=== PATIENT | male | born 1960 | race Caucasian/White ===

== ENCOUNTER → 2017-08-05 10:37 | Outpatient (CLI) | payer MEDICAID, SELFPAY ==
--- NOTE | 2017-08-05 10:44 | XR_ITS ---
XR chest 2V HISTORY: ITS.REASON: FALL, LT RIB PAIN, COPD,COUGH ORDERING PHYSICIAN: Maximino Peters PATIENT AGE: 57 years COMPARISON: 07/07/2016 FINDINGS: Normal heart size. No evidence of CHF.. Postsurgical changes on the right with right apical pleural thickening and fibrotic changes of the right lung as before.. No lobar consolidation or collapse. The pulmonary hyperinflation consistent with COPD. There is a minimally displaced fracture involving the posterior lateral aspect of the left eighth rib. The fracture margin is somewhat obscured suggesting healing. IMPRESSION: 1. Healing left eighth rib fracture not readily apparent on 07/07/2016. 2. Postsurgical changes on the right with COPD and pulmonary fibrotic changes as well as right apical pleural thickening as before
== END ==
PROVIDERS: PCP Internal Medicine; Visit Provider Internal Medicine
DX: J44.9 Chronic obstructive pulmonary disease, unspecified (principal); R07.81 Pleurodynia
CPT/HCPCS: 71046

== ENCOUNTER → 2017-08-23 11:02 | Outpatient (CLI) | payer MEDICAID, SELFPAY ==
--- NOTE | 2017-08-23 11:07 | XR_ITS ---
XR hip LT 2-3V w/pelvis HISTORY: ITS.REASON: LT HIP PAIN, DJD LT HIP ORDERING PHYSICIAN: Maximino Peters PATIENT AGE: 57 years COMPARISON: 04/11/2017 FINDINGS: There are mild osteoarthritic changes of the left hip with some decrease in joint space medially and minimal osteophyte formation. No fracture or dislocation. No lytic or blastic change. Total right hip prosthesis is present. IMPRESSION: Mild osteoarthritis of left hip
== END ==
PROVIDERS: PCP Internal Medicine; Visit Provider Internal Medicine
DX: M25.552 Pain in left hip (principal); M16.12 Unilateral primary osteoarthritis, left hip
CPT/HCPCS: 73502

== ENCOUNTER → 2017-09-20 08:06 | Outpatient (CLI) | payer MEDICAID, SELFPAY ==
--- NOTE | 2017-09-20 | CT_ITS ---
CT chest wo con HISTORY: Shortness of breath, coughing up blood, left rib pain following injury, prior thoracic surgery ITS.REASON: SOB ORDERING PHYSICIAN: Maximino Peters PATIENT AGE: 57 years TECHNIQUE: Axial images obtained. Sagittal and coronal reformatted images are also generated and reviewed. CONTRAST: None COMPARISON: None FINDINGS: No obvious mediastinal mass. There are coronary artery calcification with normal heart size. Fibrotic changes are present involving the right apex with some cavitation which is shown some improvement when compared to 10/30/2014 with improvement in the consolidation. Surgical clips are present in the right lung with hilar retraction superiorly on the right. There is some increased soft tissue density in the right hilum some of which may be due to unopacified vessels. Centrilobular emphysematous change is noted with bilateral bulla more extensive on the right. There is a noncalcified 7 mm right upper lung zone nodule which is unchanged. A 9 mm subpleural density is present in the right lower lung zone. This is unchanged as well. There is a 5 mm noncalcified nodule in the left upper lobe not readily apparent on the previous exam.. No effusions or new areas of infiltrate. No evidence of pneumothorax. Nondisplaced fractures involving the left seventh, eighth, and ninth ribs posterolaterally. These fractures have developed since 10/30/2014. There is also nondisplaced fracture of the left sixth rib. The seventh and 8 rib fractures appear chronic. The ninth rib fracture appears more acute without callus formation. Upper abdominal images show a 1 cm partially calcified nodule projecting off the posterior medial aspect of the right hepatic lobe unchanged IMPRESSION: 1. Postinflammatory fibrotic changes in the right apex with some cavitation along with centrilobular emphysema and scattered bulla. The consolidation in right upper lung zone has improved compared to the previous study. Postsurgical changes on the right 2. Stable right-sided pulmonary nodules with a new 5 mm left upper lobe nodule which is noncalcified. Recommend 6 month follow-up. 3. Old left-sided seventh and eighth rib fractures with more acute appearing left ninth rib fracture nondisplaced and possible left sixth rib fracture.
== END ==
PROVIDERS: Family Provider Internal Medicine; PCP Internal Medicine; Visit Provider Internal Medicine
DX: J44.9 Chronic obstructive pulmonary disease, unspecified (principal); J20.9 Acute bronchitis, unspecified; R04.2 Hemoptysis; F17.209 Nicotine dependence, unspecified, with unspecified nicotine-induced disorders; S22.32XA Fracture of one rib, left side, initial encounter for closed fracture
CPT/HCPCS: 71250

== ENCOUNTER → 2017-10-31 08:39 | Outpatient (CLI) | payer MEDICAID, SELFPAY ==
--- NOTE | 2017-10-31 08:43 | CA_ITS ---
PROCEDURE: 2-D M-mode and color Doppler study INDICATIONS FOR THE TEST: Chest pain COPDX Heart Murmur Tobacco SmokingX Palpitations Fatigue Syncope EdemaX Hypertension Diabetes Mellitus Rheumatic Fever SOB DOEXObesityXHyperlipidemia Family History HD Additional History PUL FIBROSIS,R LUNGECTOMY TDS PT RESTLESS DURING EXAM PATIENT INFORMATION HEIGHT: 70 WEIGHT:182 GENDER: Male B/P:127/80 2-D/M-MODE INTERPRETATION: 2-D MEASUREMENTS OBSERVED VALUES IN CMS Right Ventricular Dimension (RVDd) 1.8 Interventricular Septum (Thickness)(IVsd) 1.1 Left Ventricular Internal Dimensions(LVIDd) 4.8 Left Ventricular Posterior Wall (Thickness)(LVPWd) 1.0 Aortic Root 3.8 Aortic Cusp Separation 2.7 Left Atrial Dimensions (LAD) 2.3 2D 1. Left atrium is normal size, left ventricle is normal size, there is no concentric left ventricular hypertrophy, visually estimated ejection fraction 55% with no obvious regional wall motion abnormality. 2. The right atrium and right ventricle are mildly enlarged with normal contractility. 3. The aortic valve is minimally thickened and fibrosed. 4. The mitral and tricuspid valve leaflets are minimally thickened. 5. The pulmonic valve is poorly visualized. 6. No significant pericardial effusion noted. DOPPLER INTERROGATION: Doppler interrogation of the aortic, mitral and tricuspid valvular presence of mild mitral and tricuspid regurgitation, tricuspid and jet velocity insufficient for calculation of the right ventricular systolic pressure, grade 1 diastolic dysfunction seen without tissue Doppler evidence of raised left atrial pressure. CONCLUSION: 1. Normal left ventricular size, preserved left ventricular systolic function, visually estimated ejection fraction 55% with no obvious regional wall motion abnormality, grade 1 diastolic dysfunction seen without tissue Doppler evidence of raised left atrial pressure. 2. Mild mitral and tricuspid regurgitation 3. Mildly enlarged right ventricle with normal contractility. 4. No significant pericardial effusion noted.
== END ==
PROVIDERS: Family Provider Internal Medicine; PCP Internal Medicine; Visit Provider Internal Medicine
DX: R06.02 Shortness of breath (principal); R60.9 Edema, unspecified
CPT/HCPCS: 93306

== ENCOUNTER → 2018-03-29 13:32 | Outpatient (CLI) | payer MEDICAID, SELFPAY | PROVIDERS: PCP Internal Medicine; Visit Provider Internal Medicine | DX: M47.817 Spondylosis without myelopathy or radiculopathy, lumbosacral region (principal) ==

== ENCOUNTER → 2018-03-31 16:23 | Outpatient (CLI) | payer MEDICAID, SELFPAY ==
--- NOTE | 2018-03-31 16:25 | MR_ITS ---
MR lumbar spine wo con, MR 3-d myelogram/MRCP HISTORY: LBP, Bilateral leg pain, Numbness and tingling. ITS.REASON: SPONDYLOSIS WITHOUT MYELOPATHY ORDERING PHYSICIAN: Maximino Peters PATIENT AGE: 57 years Comparison: X-RAY 07-11-17 TECHNIQUE: Standard multiplanar multiecho sequences are performed without contrast. 3-D MIP and myelographic images are also rendered and reviewed FINDINGS: The spinal cord ends at the T12-L1 level. T12-L1: Unremarkable. L1-L2: Unremarkable. L2-L3: Minimal bulging disc with mild facet and ligamentum flavum hypertrophy with mild bilateral foraminal narrowing slightly greater on the right. L3-L4: Minimal bulging disc along with mild facet and ligamentum flavum hypertrophy with mild bilateral foraminal narrowing slightly greater on the right. Minimal anterolisthesis of L3 on L4 of 2 mm. L4-L5: 4 mm anterolisthesis of L4 with bulging disc and small broad-based central disc protrusion slightly eccentric toward the left abutting the anteromedial aspect of the left S1 nerve root. There is moderate bilateral foraminal narrowing. There is narrowing of the canal at 10 mm at this level. There is moderate to severe left lateral recess narrowing. L5-S1: Degenerative disc disease with bulging disc. There is mild retrolisthesis of L5 of 3 mm with an annular fissure within the posterior aspect of the disc. There is mild facet ligamentum hypertrophy with moderate bilateral foraminal narrowing. No extruded herniated disc. It appears that urinary bladder is distended. IMPRESSION: 1. Mild lumbar spondylosis as described above with bulging disc along with facet and ligamentum hypertrophy and foraminal lateral recess narrowing. Please see above for detailed description at each level. 2. L4-L5: 4 mm anterolisthesis of L4 with bulging disc and small broad-based central disc protrusion slightly eccentric toward the left abutting the anteromedial aspect of the left S1 nerve root. There is moderate bilateral foraminal narrowing. There is narrowing of the canal at 10 mm at this level. There is moderate to severe left lateral recess narrowing. 3. L5-S1: Degenerative disc disease with bulging disc. There is mild retrolisthesis of L5 of 3 mm with an annular fissure within the posterior aspect of the disc. There is mild facet ligamentum hypertrophy with moderate bilateral foraminal narrowing.
== END ==
PROVIDERS: Family Provider Internal Medicine; PCP Internal Medicine; Visit Provider Internal Medicine
DX: M47.817 Spondylosis without myelopathy or radiculopathy, lumbosacral region (principal)
CPT/HCPCS: 72148; 76376

== ENCOUNTER → 2018-05-15 10:17 | Outpatient (POV) | payer MEDICAID, SELFPAY ==
[2018-05-15 10:32] VITALS: BP 123/83; PULSE 112; RESP 22; O2SAT 93
--- NOTE | 2018-05-15 11:07 | HMH.PMCON ---
Assessment and Plan (1) Degenerative disc disease Current visit: Yes Status: Chronic Qualifiers: Spinal region: lumbar Qualified Code(s): M51.36 - Other intervertebral disc degeneration, lumbar region Category: Medical (2) Bulging disc Current visit: Yes Status: Acute Category: Medical - Assessment and plan all Dx Assessment and Plan for all problems:: We will schedule the patient for an L4-L5 lumbar epidural steroid injection. Patient states he is not on any antibiotics and does not have any open wounds. Patient is not diabetic. Patient's not on any anticoagulation therapy. I will follow-up with the patient after his injection. This note was dictated using voice recognition software and may contain errors or omissions HPI - Data of Consult Consult date: 05/15/18 Requesting Physician: Charlotte Samson APRN Primary Care Provider: Maximino Peters Family Provider: Maximino Peters - Consult Narrative Reason for consult: Back pain History of present illness: Mr. Mandel is a 58 year old male who presents today for consultation in regards to his low back pain. Patient states that he has had constant pain over the last couple years. Patient had his right hip replaced which he states did not help. Patient has had multiple injections in both hips with no relief. Patient states that he is tried and failed physical therapy. Patient is currently on oxycodone from his primary care physician. Patient states all activity increases his pain while nothing decreases it. He denies numbness and tingling in any extremity however he does state he has shooting pain down his right leg at times. Patient is not on any anticoagulation therapy. Patient rates his pain a 7 out of 10 today. Patient states I am here because Dr. Peters said I need to get a back injection . CC: Charlotte Samson APRN [facility] History I have reviewed the patient's past medical history: Yes Medical History: Reports:: Chronic Obstructive Pulmonary Disease (COPD) Denies:: Diabetes Mellitus Type 1 Other Medical History: Reports: Arthritis Laterality Cases: Right: Total Hip Replacement, Bilateral: Other Other Surgeries: Yes: Appendectomy - *Social History Smoking Status: Current every day smoker Tobacco Type: cigarettes # Packs/Day (cigarettes): 2 Alcohol Intake: never Alcohol Intake Frequency:: 3 or more drinks per day Occupational Status: retired Housing: house Household Members: other - Psychiatric History Expresses thoughts of harming self/others: None Suicide Plan Description: No Plan *Family Hx:: Unable to obtain Review of Systems - Review of Systems ROS General: no recent weight change, no fever, no sleep disturbances Respiratory: no cough, no shortness of air, no recurring pulmonary infections Cardiovascular/Peripheral Vascular: No chest pain, No palpitations, no edema, no shortness of breath. Gastrointestinal: no incontinence, normal bowel movements reported Genitourinary: no incontinence Musculoskeletal: Back pain, leg pain Psychiatric: normal mood/ affect Neurological: [denies weakness in extremities], [denies balance issues] Meds Home Medications Medication Instructions Recorded Confirmed Type etodolac 400 mg tablet 400 mg PO Q8H tab 09/05/17 History gabapentin 300 mg capsule 300 mg PO QHS cap 09/05/17 History hydrocodone 5 mg-acetaminophen 325 1 tab PO Q4-6H PRN 09/05/17 History mg tablet Allergies Allergy/AdvReac Type Severity Reaction Status Date / Time aspirin [ASPIRIN] Allergy Mild Vomiting Verified 09/05/17 15:11 Objective Vital signs: Pulse Resp BP Pulse Ox 112 H 22 123/83 93 L 05/15/18 10:32 05/15/18 10:32 05/15/18 10:32 05/15/18 10:32 Narrative: Physical Exam General: Alert and oriented x3, no acute distress, pleasant and cooperative, [on room air] Lungs: Resps E/U, Symmetrical chest expansion, Eyes: PERRL Musculoskeletal: Flex
--- NOTE | 2018-05-15 11:10 | P.CONS_ITS ---
Assessment and Plan (1) Degenerative disc disease Current visit: Yes Status: Chronic Qualifiers: Spinal region: lumbar Qualified Code(s): M51.36 - Other intervertebral disc degeneration, lumbar region Category: Medical (2) Bulging disc Current visit: Yes Status: Acute Category: Medical - Assessment and plan all Dx Assessment and Plan for all problems:: We will schedule the patient for an L4-L5 lumbar epidural steroid injection. Patient states he is not on any antibiotics and does not have any open wounds. Patient is not diabetic. Patient's not on any anticoagulation therapy. I will follow-up with the patient after his injection. This note was dictated using voice recognition software and may contain errors or omissions HPI - Data of Consult Consult date: 05/15/18 Requesting Physician: Charlotte Samson APRN Primary Care Provider: Maximino Peters Family Provider: Maximino Peters - Consult Narrative Reason for consult: Back pain History of present illness: Mr. Mandel is a 58 year old male who presents today for consultation in regards to his low back pain. Patient states that he has had constant pain over the last couple years. Patient had his right hip replaced which he states did not help. Patient has had multiple injections in both hips with no relief. Patient states that he is tried and failed physical therapy. Patient is currently on oxycodone from his primary care physician. Patient states all activity increases his pain while nothing decreases it. He denies numbness and tingling in any extremity however he does state he has shooting pain down his right leg at times. Patient is not on any anticoagulation therapy. Patient rates his pain a 7 out of 10 today. Patient states I am here because Dr. Peters said I need to get a back injection . CC: Charlotte Samson APRN [facility] History I have reviewed the patient's past medical history: Yes Medical History: Reports:: Chronic Obstructive Pulmonary Disease (COPD) Denies:: Diabetes Mellitus Type 1 Other Medical History: Reports: Arthritis Laterality Cases: Right: Total Hip Replacement, Bilateral: Other Other Surgeries: Yes: Appendectomy - *Social History Smoking Status: Current every day smoker Tobacco Type: cigarettes # Packs/Day (cigarettes): 2 Alcohol Intake: never Alcohol Intake Frequency:: 3 or more drinks per day Occupational Status: retired Housing: house Household Members: other - Psychiatric History Expresses thoughts of harming self/others: None Suicide Plan Description: No Plan *Family Hx:: Unable to obtain Review of Systems - Review of Systems ROS General: no recent weight change, no fever, no sleep disturbances Respiratory: no cough, no shortness of air, no recurring pulmonary infections Cardiovascular/Peripheral Vascular: No chest pain, No palpitations, no edema, no shortness of breath. Gastrointestinal: no incontinence, normal bowel movements reported Genitourinary: no incontinence Musculoskeletal: Back pain, leg pain Psychiatric: normal mood/ affect Neurological: [denies weakness in extremities], [denies balance issues] Meds Home Medications Medication Instructions Recorded Confirmed Type etodolac 400 mg tablet 400 mg PO Q8H tab 09/05/17 History gabapentin 300 mg capsule 300 mg PO QHS cap 09/05/17 History hydrocodone 5 mg-acetaminophen 325 1 tab PO Q4-6H PRN 09/05/17 History mg tablet
== END ==
PROVIDERS: Family Provider Internal Medicine; PCP Internal Medicine; Visit Provider Clinical Nurse Specialist Family Health
DX: M51.36 Other intervertebral disc degeneration, lumbar region (principal)
CPT/HCPCS: 99202

== ENCOUNTER → 2018-07-10 13:42 | Outpatient (POV) | payer MEDICAID, SELFPAY ==
[2018-07-10 14:09] VITALS: BP 124/73; PULSE 113; O2SAT 98; BMI 26.5
--- NOTE | 2018-07-11 08:16 | HMH.PAINSOAP ---
[facility] Pain Management SOAP Note Subjective:: Patient is a 58-year-old white male who presents today for follow-up after lumbar epidural steroid injection. Patient states he got no relief from the injection. He states most of his pain is in his belt line at this time. Is tender over bilateral sides. He rates his pain a 9 out of 10. Patient is currently on oxycodone and gabapentin from his primary care physician. Is not on any anticoagulation therapy. ROS General: no recent weight change, no fever, no sleep disturbances Respiratory: no cough, no shortness of air, no recurring pulmonary infections Cardiovascular/Peripheral Vascular: No chest pain, No palpitations, no edema, no shortness of breath. Gastrointestinal: no incontinence, normal bowel movements reported Genitourinary: no incontinence Musculoskeletal: Back pain, leg pain, SI joint pain Psychiatric: normal mood/ affect Neurological: [denies weakness in extremities], [denies balance issues] Objective:: Physical Exam General: Alert and oriented x3, no acute distress, pleasant and cooperative, [on room air] Lungs: Resps E/U, Symmetrical chest expansion, Eyes: PERRL Musculoskeletal: Flexion and extension of lumbar spine somewhat guarded secondary to pain, deep tendon reflexes normal, strength in upper and lower extremities [5/5], antalgic gait noted, positive Belle's test bilaterally Neurological: speech clear, director of rehabilitation equal, no gross sensory deficits Assessment:: Degenerative disc disease lumbar spine with lumbar radiculopathy, sacroiliitis Plan:: We will schedule bilateral SI joint injections for the patient. We will see if the ears are beneficial to him. If they are not he may be a candidate for intrathecal therapy. This note was dictated using voice recognition software and may contain errors or omissions
== END ==
PROVIDERS: PCP Internal Medicine; Visit Provider Clinical Nurse Specialist Family Health
DX: M51.16 Intervertebral disc disorders with radiculopathy, lumbar region (principal); M46.1 Sacroiliitis, not elsewhere classified
CPT/HCPCS: 99213

== ENCOUNTER → 2018-08-14 10:50 | Outpatient (POV) | payer MEDICAID, SELFPAY ==
[2018-08-14 11:16] VITALS: BP 100/65; PULSE 95; RESP 18; O2SAT 98; BMI 26.8
--- NOTE | 2018-08-14 12:55 | P.CONS_ITS ---
[facility] Pain Management SOAP Note Subjective:: Is a pleasant 58-year-old white male who presents today for follow-up. Patient is not feeling very well at this time. Patient states he is been quite sick. Patient is here to discuss his bilateral SI joint injections. Patient has positive Tono's test, SI compression test and [place]'s test bilaterally. Patient interested in injective therapy. He rates his pain a 9 out of 10 today. Patient is currently on oxycodone and gabapentin from his primary care physician. He is not on any anticoagulation therapy. ROS General: no recent weight change, no fever, no sleep disturbances Respiratory: no cough, no shortness of air, no recurring pulmonary infections Cardiovascular/Peripheral Vascular: No chest pain, No palpitations, no edema, no shortness of breath. Gastrointestinal: no incontinence, normal bowel movements reported Genitourinary: no incontinence Musculoskeletal: Bilateral SI joint pain Psychiatric: normal mood/ affect Neurological: [denies weakness in extremities], [denies balance issues] Objective:: Physical Exam General: Alert and oriented x3, no acute distress, pleasant and cooperative, [on room air] Lungs: Resps E/U, Symmetrical chest expansion, Eyes: PERRL Musculoskeletal: Flexion and extension of bar spine somewhat guarded secondary to pain, deep tendon reflexes normal, strength in upper and lower extremities [5/5], [abnormal gait noted] Neurological: speech clear, electronic test technician equal, no gross sensory deficits Assessment:: Degenerative disc disease lumbar spine with lumbar radiculopathy and sacroiliitis Plan:: We will schedule bilateral SI joint injections for the patient. We will see if this is beneficial for him. He may be a candidate for intrathecal therapy in the future. Dr. Sargent has reviewed this note and agrees with this plan of care. This note was dictated using voice recognition software and may contain errors or omissions
== END ==
PROVIDERS: PCP Internal Medicine; Visit Provider Clinical Nurse Specialist Family Health
DX: M51.16 Intervertebral disc disorders with radiculopathy, lumbar region (principal); M46.1 Sacroiliitis, not elsewhere classified
CPT/HCPCS: 99213

== ENCOUNTER → 2018-09-12 09:21 | Outpatient (POV) | payer MEDICAID, SELFPAY ==
[2018-09-12 09:24] VITALS: BP 129/85; PULSE 115; RESP 18; O2SAT 98; BMI 27.5
--- NOTE | 2018-09-12 10:05 | P.CONS_ITS ---
[facility] Pain Management SOAP Note Subjective:: Patient is a 58-year-old white male who presents today for follow-up after bilateral SI joint injections. He got no relief from his injections. Patient has low back pain and hip pain chronically. Patient has tried and failed conservative measures. He is currently on oxycodone and gabapentin from his primary care physician. He has not seen a surgeon lately. I believe that this is her next step. ROS General: no recent weight change, no fever, no sleep disturbances Respiratory: no cough, no shortness of air, no recurring pulmonary infections Cardiovascular/Peripheral Vascular: No chest pain, No palpitations, no edema, no shortness of breath. Gastrointestinal: no incontinence, normal bowel movements reported Genitourinary: no incontinence Musculoskeletal: Back pain, leg pain, hip pain Psychiatric: normal mood/ affect Neurological: [denies weakness in extremities], [denies balance issues] Objective:: Physical Exam General: Alert and oriented x3, no acute distress, pleasant and cooperative, [on room air] Lungs: Resps E/U, Symmetrical chest expansion, Eyes: PERRL Musculoskeletal: Flexion and extension of lumbar spine somewhat guarded secondary to pain, deep tendon reflexes normal, strength in upper and lower extremities [5/5], [abnormal gait noted] Neurological: speech clear, refinisher equal, no gross sensory deficits Assessment:: Degenerative disc disease with lumbar radiculopathy and sacroiliitis Plan:: We will send the patient to a neurosurgeon for evaluation. I do not believe the patient would be a good intrathecal therapy candidate given his comorbidities and current medication regimen. I will follow-up with the patient after his neurosurgical evaluation. Dr. Sargent has reviewed this note and agrees with this plan of care. This note was dictated using voice recognition software and may contain errors or omissions
== END ==
PROVIDERS: PCP Internal Medicine; Visit Provider Clinical Nurse Specialist Family Health
DX: M51.16 Intervertebral disc disorders with radiculopathy, lumbar region (principal); M46.1 Sacroiliitis, not elsewhere classified
CPT/HCPCS: 99213

== ENCOUNTER → 2018-09-19 07:58 | Outpatient (CLI) | payer MEDICAID, SELFPAY ==
--- NOTE | 2018-09-19 07:59 | US_ITS ---
US abdomen complete HISTORY: ITS.REASON: GALLSTONES,PACREATITIS, ELEVATED PANCREAS ENZYMES ORDERING PHYSICIAN: Maximino Peters PATIENT AGE: 58 years COMPARISON: None FINDINGS: PANCREAS:Unremarkable. No obvious mass or abnormal fluid collection. No ductal dilatation LIVER:Increase echogenicity of liver consistent with hepatic steatosis with poor through transmission of sound. There is appropriate direction of blood flow within the portal vein which does not appear dilated. No obvious liver lesions RIGHT KIDNEY:Unremarkable. Normal size and echogenicity. No hydronephrosis LEFT KIDNEY:Unremarkable. No hydronephrosis. Normal size and echogenicity. GALLBLADDER:Gallbladder is distended with multiple small stones.: Bowel duct is normal at 3 mm. No gallbladder wall thickening or pericholecystic fluid. SPLEEN:Unremarkable. Normal size and echogenicity ASCITES:None demonstrated. IMPRESSION: 1. Mildly distended gallbladder with small stones 2. Fatty liver.
== END ==
PROVIDERS: PCP Internal Medicine; Visit Provider Internal Medicine
DX: K85.10 Biliary acute pancreatitis without necrosis or infection (principal); R74.8 Abnormal levels of other serum enzymes
CPT/HCPCS: 76700

== ENCOUNTER → 2018-10-03 14:50 | Outpatient (CLI) | payer MEDICAID, SELFPAY ==
[2018-10-03 15:11] LABS: Basophils % 0.4 % (0.1-2.0); Eosinophils # 0.1 K/mm3 (0.0-0.4); Eosinophils % 0.5 % (0.1-12.0); Hematocrit 42.6 % (42.0-52.0); Hemoglobin 14.3 g/dL (14.1-18.0); Lymphocytes # 2.1 K/mm3 (0.7-4.5); Lymphocytes % 19.8 % (10-50); Mean Corpuscular HGB Conc 33.5 g/dL (31.8-35.4); Mean Corpuscular Hemoglobin 34.3 pg (27.0-31.2); Mean Corpuscular Volume 102.3 fl (80-94); Mean Platelet Volume 7.3 fl (7.4-10.4); Monocytes # 0.3 K/mm3 (0.1-1.0); Monocytes % 2.9 % (1.7-9.3); Neutrophils % 76.4 % (37.0-80.0); Platelet Count 242 K/mm3 (142-424); Red Blood Count 4.16 M/mm3 (4.60-6.20); Red Cell Distribution Width 14.1 % (11.5-17.5); White Blood Count 10.4 K/mm3 (4.8-10.8)
[2018-10-03 15:17] LABS: INR 0.99 (0.9-1.1); Prothrombin Time 10.2 seconds (9.4-11.8)
[2018-10-03 16:47] LABS: Alanine Aminotransferase 38 U/L (12-78); Albumin Level 2.7 gm/dL (3.4-5.0); Albumin/Globulin Ratio 0.6 (1.1-1.8); Alkaline Phosphatase 133 U/L (46-116); Anion Gap 19.9 mEq/L (5-15); Aspartate Amino Transferase 56 U/L (15-37); Bilirubin,Total 0.3 mg/dL (0.2-1.0); Blood Urea Nitrogen 2 mg/dL (7-18); Calcium 8.2 mg/dL (8.5-10.1); Carbon Dioxide 20 mmol/L (21.0-32.0); Chloride 99 mmol/L (98-107); Creatinine,Serum 0.57 mg/dL (0.70-1.30); Estimated Glomerular Filt Rate 146 ml/min (>60); GFR (African American) 177 ML/MIN (>60); Globulin 4.9 gm/dl (1.3-3.2); Glucose 107 mg/dL (74-106); Potassium 3.9 mmoL/L (3.5-5.1); Sodium 135 mmol/L (136-145); Total Protein,Serum 7.6 gm/dL (6.4-8.2)
== END ==
PROVIDERS: Visit Provider Surgery
DX: K82.9 Disease of gallbladder, unspecified (principal)
CPT/HCPCS: 36415; 80053; 85025; 85610

== ENCOUNTER → 2018-10-17 11:12 | Outpatient (CLI) | payer MEDICAID, SELFPAY ==
[2018-10-17 12:02] LABS: Basophils % 0.4 % (0.1-2.0); Eosinophils % 0.6 % (0.1-12.0); Hematocrit 38.1 % (42.0-52.0); Hemoglobin 12.7 g/dL (14.1-18.0); Lymphocytes # 1.7 K/mm3 (0.7-4.5); Lymphocytes % 26.4 % (10-50); Mean Corpuscular HGB Conc 33.2 g/dL (31.8-35.4); Mean Corpuscular Hemoglobin 34.1 pg (27.0-31.2); Mean Corpuscular Volume 102.7 fl (80-94); Mean Platelet Volume 7.3 fl (7.4-10.4); Monocytes # 0.4 K/mm3 (0.1-1.0); Monocytes % 5.9 % (1.7-9.3); Neutrophils # 4.3 K/mm3 (1.8-7.8); Neutrophils % 66.7 % (37.0-80.0); Platelet Count 164 K/mm3 (142-424); Red Blood Count 3.71 M/mm3 (4.60-6.20); White Blood Count 6.4 K/mm3 (4.8-10.8)
[2018-10-17 12:54] LABS: Alanine Aminotransferase 36 U/L (12-78); Albumin Level 2.9 gm/dL (3.4-5.0); Albumin/Globulin Ratio 0.7 (1.1-1.8); Alkaline Phosphatase 145 U/L (46-116); Anion Gap 18.8 mEq/L (5-15); Aspartate Amino Transferase 83 U/L (15-37); Bilirubin,Total 0.6 mg/dL (0.2-1.0); Blood Urea Nitrogen 5 mg/dL (7-18); Calcium 8.2 mg/dL (8.5-10.1); Carbon Dioxide 23 mmol/L (21.0-32.0); Chloride 95 mmol/L (98-107); Creatinine,Serum 0.58 mg/dL (0.70-1.30); Estimated Glomerular Filt Rate 143 ml/min (>60); GFR (African American) 174 ML/MIN (>60); Globulin 4.2 gm/dl (1.3-3.2); Glucose 111 mg/dL (74-106); Potassium 3.8 mmoL/L (3.5-5.1); Sodium 133 mmol/L (136-145); Total Protein,Serum 7.1 gm/dL (6.4-8.2)
== END ==
PROVIDERS: Visit Provider Surgery
DX: R14.0 Abdominal distension (gaseous) (principal); R19.7 Diarrhea, unspecified
CPT/HCPCS: 36415; 80053; 85025

== ENCOUNTER → 2019-02-28 12:04 | Outpatient (CLI) | payer MEDICAID, SELFPAY ==
[2019-02-28 12:25] LABS: INR 1.03 (0.9-1.1); Prothrombin Time 10.7 seconds (9.4-11.8)
[2019-02-28 12:56] LABS: Basophils # 0.1 K/mm3 (0-0.2); Basophils % 0.8 % (0.1-2.0); Eosinophils # 0.1 K/mm3 (0.0-0.4); Eosinophils % 0.7 % (0.1-12.0); Hematocrit 40.2 % (42.0-52.0); Hemoglobin 13.3 g/dL (14.1-18.0); Lymphocytes # 3.3 K/mm3 (0.7-4.5); Lymphocytes % 37.9 % (10-50); Mean Corpuscular HGB Conc 33.2 g/dL (31.8-35.4); Mean Corpuscular Hemoglobin 33.4 pg (27.0-31.2); Mean Corpuscular Volume 100.7 fl (80-94); Mean Platelet Volume 6.8 fl (7.4-10.4); Monocytes # 0.8 K/mm3 (0.1-1.0); Monocytes % 8.9 % (1.7-9.3); Neutrophils # 4.5 K/mm3 (1.8-7.8); Neutrophils % 51.6 % (37.0-80.0); Platelet Count 306 K/mm3 (142-424); Red Blood Count 3.99 M/mm3 (4.60-6.20); White Blood Count 8.7 K/mm3 (4.8-10.8)
[2019-02-28 14:35] LABS: Alanine Aminotransferase 13 U/L (12-78); Albumin Level 2.2 gm/dL (3.4-5.0); Albumin/Globulin Ratio 0.4 (1.1-1.8); Alkaline Phosphatase 113 U/L (46-116); Anion Gap 13.5 mEq/L (5-15); Aspartate Amino Transferase 34 U/L (15-37); Bilirubin,Total 0.5 mg/dL (0.2-1.0); Blood Urea Nitrogen 4 mg/dL (7-18); Calcium 8.2 mg/dL (8.5-10.1); Carbon Dioxide 23 mmol/L (21.0-32.0); Chloride 96 mmol/L (98-107); Creatinine,Serum 0.63 mg/dL (0.70-1.30); Estimated Glomerular Filt Rate 130 ml/min (>60); GFR (African American) 158 ML/MIN (>60); Globulin 5.8 gm/dl (1.3-3.2); Glucose 129 mg/dL (74-106); Potassium 4.5 mmoL/L (3.5-5.1); Sodium 128 mmol/L (136-145)
== END ==
PROVIDERS: Visit Provider Nurse Practitioner
DX: R10.10 Upper abdominal pain, unspecified (principal); R18.8 Other ascites
CPT/HCPCS: 36415; 80053; 85025; 85610

== ENCOUNTER 2019-03-25 11:34 | Inpatient (IN) ==
--- NOTE | 2019-03-25 12:01 | Emergency Department Note ---
ED Disposition Clinical Impression: Alcoholism, Hemoptysis CAP (community acquired pneumonia) Qualifiers: Laterality: right Lung location: upper lobe of lung Qualified Code(s): J18.1 - Lobar pneumonia, unspecified organism Disposition: Admitted as Observation Condition on Discharge: Fair Referrals: Provider,Referral, [Primary Care Provider] - - Critical Care Critical Care Time: No Attestation: On , the high probability of a clinically significant, sudden or life threatening deterioration of the following system(s) required my full and direct attention, intervention and personal management. The time I documented below is in addition to time spent performing reported procedures but includes the following listed in this critical care notation. Medical Decision Making - Rafael Inquiry Pt receiving controlled substance: Yes Rafael was queried for this patient: Yes Reference #:: [id number] Risks and benefits of using a controlled substance: were not discussed with pt by me Comment: 30 rxs. last opiate rx 120 oxycodone 15mg 03/09. gabapentin 03/19 Vital Signs: 03/25/19 11:42 03/25/19 12:28 03/25/19 12:56 Temperature 97.6 F Temperature Source Oral Pulse Rate [Right Radial] 88 85 87 Respiratory Rate 20 Blood Pressure [Right Arm] 122/72 106/72 L 107/74 L Blood Pressure Mean [Right Arm] 88 83 85 Blood Pressure Source [Right Arm] Automatic Cuff Automatic Cuff Automatic Cuff Blood Pressure Position [Right Arm] Sitting Sitting Sitting 02 Sat by Pulse Oximetry 98 100 93 L Oxygen Delivery Method Room Air Room Air Room Air 03/25/19 14:00 03/25/19 14:30 03/25/19 15:00 Temperature Temperature Source Pulse Rate [Right Radial] 86 78 92 H Respiratory Rate Blood Pressure [Right Arm] 133/75 119/78 105/68 L Blood Pressure Mean [Right Arm] 94 91 80 Blood Pressure Source [Right Arm] Automatic Cuff Automatic Cuff Automatic Cuff Blood Pressure Position [Right Arm] Sitting Supine Sitting 02 Sat by Pulse Oximetry 98 98 96 Oxygen Delivery Method - Lab Data Lab Results 03/25/19 11:40: WBC 9.6, RBC 4.02 L, Hgb 13.5 L, Hct 40.8 L, MCV 101.3 H, MCH 33.6 H, MCHC 33.1, RDW 15.0, Plt Count 305, MPV 6.9 L, Neut % (Auto) 73.8, Lymph % (Auto) 18.5, [place] % (Auto) 6.7, Eos % (Auto) 0.5, Baso % (Auto) 0.5, Neut # (Auto) 7.1, Lymph # (Auto) 1.8, [place] # (Auto) 0.6, Eos # (Auto) 0.0, Baso # (Auto) 0.1 03/25/19 11:40: Sodium 126 L, Potassium 3.8, Chloride 90 L, Carbon Dioxide 26, Anion Gap 13.8, BUN 6 L, Creatinine 0.92, Estimated Creat Clear 111, Estimated GFR 84, Est GFR ( Amer) 102, Glucose 136 H, Calcium 9.0, Total Bilirubin 0.7, Direct Bilirubin 0.3 H, Indirect Bilirubin 0.4, AST 24, ALT 13, Alkaline Phosphatase 158 H, Troponin I < 0.02, Total Protein 8.9 H, Albumin 2.4 L, Globulin 6.5 H, Albumin/Globulin Ratio 0.4 L 03/25/19 11:40: PT 11.5, INR 1.11 H 03/25/19 13:25: Lactate 3.5 H Result diagrams: 03/25/19 11:40 03/25/19 11:40 Orders (Tests/Meds): ED MEDICATIONS Generic Name Dose Route Start Last Admin Trade Name Freq PRN Reason Stop Dose Admin Ceftriaxone Sodium 1 gm/ 50 mls @ 100 mls/hr 03/25/19 15:15 Sodium Chloride IV 04/08/19 15:14 Q24H ARJUN Protocol Azithromycin 500 mg/ Sodium 250 mls @ 250 mls/hr 03/25/19 15:15 Chloride IV 04/08/19 15:14 Q24H ARJUN Protocol Clindamycin Phosphate 900 mg/ 106 mls @ 100 mls/hr 03/25/19 15:15 Sodium Chloride IV 04/08/19 15:14 Q8H ARJUN Protocol Sodium Chloride 3 ml 03/25/19 12:12 Sodium Chloride 3% 15ml Neb IH 04/24/19 12:11 ONCE PRN INDUCE SPUTUM COLLECTION Discontinued Medications Generic Name Dose Route Start Last Admin Trade Name Freq PRN Reason Stop Dose Admin Ioversol 75 ml 03/25/19 14:26 03/25/19 14:27 Rad-Optiray 350 100ml Vial IV 03/25/19 14:27 75 ml ONCE ONE Administration Protocol Sodium Chloride 50 ml 03/25/19 14:26 03/25/19 14:27 Rad-Ns 50ml Vial IV 03/25/19 14:27 50 ml ONCE ONE Administration ORDERS Category Date Time Status Ethanol [Ethyl Alcohol] Stat Lab 03/25/19 15:16 Ordered Acid Fast Smear+Culture W/Rflx Routine Micro 03/25/19 12:20 Received Blood Culture Stat Micro 03/25/19 13:30 Received Sputum Culture & Gram Stain Stat Micro 03/25/19 12:20 Results - Radiology Data #1 Image(s): Chest Image Reviewed: Yes I reviewed the patient's radiology image, Yes I have reviewed radiologist's interpretation FINDINGS: There is volume loss right hemithorax with prominent right apical pleural and parenchymal scarring and retraction in the right hilum upward. There surgical clips projecting over the right hilum. Fibrotic stranding and/or scarring extends downward into the right middle lower lung field. The left lung hsieh well expanded and clear. Cardiac size is normal and vascularity is otherwise normal and there is no pleural fluid. There are prominent degenerative changes in both shoulders. IMPRESSION: Postsurgical changes right hemithorax, no acute chest pathology Dictated by: Dr. Nehemias Hi MD 03/25/2019 13:19 - CT Data CT Scan: Chest (CTA) Time Received: 15:[address] Reviewed: Yes: I discussed the CT results w/the radiologist Findings Narrative: Postsurgical changes in right lung with probable superimposed acute infiltrate right upper lobe. - Physician Consults Physician Consulted: Jermaine Quintana Time: 15:23 Reason -: Admission Comment/Response: Agrees to admit the patient to the hospital. We discussed the patient's clinical information, including history, exam, laboratory and radiology results and ED course. Per hospital procedure, I will write temporary bridge inpatient orders on the patient. Specific orders requested by the admitting physician: Continue Rocephin, Zithromax, clindamycin. Alcohol withdrawal protocol. General Adult HPI - General Chief complaint: Chest Pain Stated complaint: chest pain, fall, weakness Time Seen by Provider: 03/25/19 12:00 Mode of Arrival: Wheelchair Limitations: No Limitations Description of Symptoms (Recalled from ER Triage Doc. by RN): Pt reports chest heaviness for approx 2 weeks, reports coughing up blood, generalized weakness and falls. Pt has scattered abrasions noted to BUE and BLE. Pt also reports hx of "liver problems". - History of Present Illness HPI narrative: States constant heaviness across his chest for 2 weeks. Says he is coughing up lots of blood, mouthfuls. Also coughing up phlegm. Does not think he has had a fever. Feels generally weak. He is a smoker. Also states he has a history of liver disease, possibly due to alcohol. He is still a drinker. Last drank a couple of sips of beer yesterday. Called Dr. Peters, his PCP, a few days ago and was started on Keflex. He says he called him because he had "pus coming out of my sores". He points to a scab on his left wrist. 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 Had his gallbladder taken out a few months ago. He thinks it was done at this hospital. PCP is Dr. Peters. - Related Data Home Medications Medication Instructions Recorded Confirmed etodolac 400 mg tablet 400 mg PO Q8H tab 09/05/17 11/15/18 gabapentin 300 mg capsule 300 mg PO QHS cap 09/05/17 11/15/18 famotidine 20 mg tablet 20 mg PO BID 10/04/18 11/15/18 furosemide 40 mg tablet 40 mg PO DAILY 10/04/18 03/25/19 hydrocortisone 2.5 % topical cream 1 applic [place] QD-BID PRN 10/04/18 11/15/18 with perineal applicator ondansetron HCl 4 mg tablet 4 mg PO QID PRN 10/04/18 11/15/18 oxycodone 15 mg tablet 15 mg PO Q4-6H PRN 10/04/18 11/15/18 spironolactone 50 mg tablet 50 mg PO BID 10/04/18 03/25/19 Pantoprazole Sodium [Protonix 40mg 40 mg PO BID 03/25/19 03/25/19 tablet] Potassium Chloride [Klor-con 20 20 meq PO DAILY 03/25/19 03/25/19 mEq tablet] Tamsulosin HCl 0.4 mg PO DAILY 03/25/19 03/25/19 cephALEXin [cephALEXin 500mg 500 mg PO BID 03/25/19 03/25/19 capsule*] Allergies Allergy/AdvReac Type Severity Reaction Status Date / Time aspirin [ASPIRIN] Allergy Mild Vomiting Verified 11/15/18 10:53 [facility] History - Hepatitis A Screen Drug use history?: No High risk sexual behaviors?: No History of sexually transmitted infection?: No Currently employed?: No Childcare worker?: No Do you have indoor plumbing?: Yes Do you have electricity?: Yes Attestation statement:: This patient has been screened for Hepatitis A risk factors. I have reviewed the patient's past medical history: Yes Medical History: Reports:: Chronic Obstructive Pulmonary Disease (COPD) Denies:: Cancer, Diabetes Mellitus Type 1, Diabetes Mellitus Type 2, Internal Pacemaker, MRSA, Seizures Other Medical History: Reports: Arthritis, Fibromyalgia. Denies: Blood Transfusion Reaction Comment: Facial sebaceous cyst, Cervical Spondylosis, Lumbosacral Spondylosis, History of neck fractures x2. Laterality Cases: Other Surgeries: Yes: Appendectomy, Cholecystectomy, Colonoscopy, Other (phneumonectomy). No: Pacemaker Amputation: No Fractures: No Comment: Back Surgery, Hip Replacement, Lung Removal, - Social History Smoking Status: Current every day smoker Tobacco Type: cigarettes # Packs/Day (cigarettes): 3 Alcohol Intake: current Alcohol Intake Frequency:: 0-2 drinks per day Substance Use Type: marijuana Occupational Status: unemployed, retired Housing: house Household Members: none Family Hx:: Unable to obtain ROS Obtained: Yes All systems reviewed & no additional complaints - Constitutional Constitutional: Reports fatigue, Denies fever(s), Reports weakness - Cardiovascular Cardiovascular: Reports chest pain - Respiratory Respiratory: Yes cough, Yes excessive phlegm production, Yes coughing up blood - Gastrointestinal Gastrointestingal: Denies: abdominal pain, diarrhea, vomiting - Integumentary/Breasts Skin/Breast: Reports as per HPI Physical Exam - General General appearance: alert, in no apparent distress Comment: Appears chronically ill, generally in poor health. Appears older than stated age. Generally weak. Scattered bruises of various ages. Scattered scabs. Tobacco stained fingers. - Head Head exam: atraumatic, normocephalic - Eye Eye exam: Present: PERRL, EOMI. Absent: scleral icterus - ENT ENT exam: Present: mucous membranes moist - Neck Neck exam: Present: normal inspection, trachea midline - Chest Chest inspection: Present: normal inspection, symmetric chest wall rise, tenderness (Diffusely tender chest) - Respiratory Respiratory exam: Present: normal lung sounds bilaterally. Absent: respiratory distress - Cardiovascular Cardiovascular exam: Present: regular rate, normal rhythm, normal heart sounds - Abdominal Exam Abdominal exam: Present: soft, tenderness, normal bowel sounds Abdominal tenderness: Present: diffuse - Extremities Exam Extremities exam: Present: normal inspection - Neurological Exam Neurological exam: Present: alert, oriented X3 - Psychiatric Psychiatric exam: Present: normal affect, normal mood - Skin Skin exam: Present: warm, dry
[2019-03-25 12:22] LABS: Basophils # 0.1 K/mm3 (0-0.2); Basophils % 0.5 % (0.1-2.0); Eosinophils % 0.5 % (0.1-12.0); Hematocrit 40.8 % (42.0-52.0); Hemoglobin 13.5 g/dL (14.1-18.0); Lymphocytes # 1.8 K/mm3 (0.7-4.5); Lymphocytes % 18.5 % (10-50); Mean Corpuscular HGB Conc 33.1 g/dL (31.8-35.4); Mean Corpuscular Volume 101.3 fl (80-94); Mean Platelet Volume 6.9 fl (7.4-10.4); Monocytes # 0.6 K/mm3 (0.1-1.0); Monocytes % 6.7 % (1.7-9.3); Neutrophils # 7.1 K/mm3 (1.8-7.8); Neutrophils % 73.8 % (37.0-80.0); Platelet Count 305 K/mm3 (142-424); Red Blood Count 4.02 M/mm3 (4.60-6.20); White Blood Count 9.6 K/mm3 (4.8-10.8)
[2019-03-25 12:28] LABS: INR 1.11 (0.9-1.1); Prothrombin Time 11.5 seconds (9.4-11.8)
[2019-03-25 12:36] LABS: Alanine Aminotransferase 13 U/L (12-78); Albumin Level 2.4 gm/dL (3.4-5.0); Albumin/Globulin Ratio 0.4 (1.1-1.8); Alkaline Phosphatase 158 U/L (46-116); Anion Gap 13.8 mEq/L (5-15); Aspartate Amino Transferase 24 U/L (15-37); Bilirubin,Direct 0.3 mg/dL (0.0-0.2); Bilirubin,Indirect 0.4 mg/dL (0.0-0.9); Bilirubin,Total 0.7 mg/dL (0.2-1.0); Blood Urea Nitrogen 6 mg/dL (7-18); Carbon Dioxide 26 mmol/L (21.0-32.0); Chloride 90 mmol/L (98-107); Globulin 6.5 gm/dl (1.3-3.2); Glucose 136 mg/dL (74-106); Sodium 126 mmol/L (136-145); Total Protein,Serum 8.9 gm/dL (6.4-8.2)
[2019-03-25 16:07] LABS: Amphetamine/Metha Screen,Urine Negative ng/mL (<1000); Barbiturates Screen,Urine Negative ng/mL (<200); Benzodiazepines Screen,Urine Negative ng/mL (<200); Cannabinoid Screen,Urine Negative ng/mL (<50); Cocaine Screen,Urine Negative ng/mL (<300); Methadone Screen,Urine Negative ng/mL (<300); Opiate Screen,Urine Negative ng/mL (<300); Phencyclidine Screen,Urine Negative ng/mL (<25)
[2019-03-25 16:44] LABS: Phosphorous 3.4 mg/dL (2.4-4.9)
[2019-03-26 07:32] LABS: Basophils % 0.5 % (0.1-2.0); Eosinophils % 0.5 % (0.1-12.0); Hematocrit 38.8 % (42.0-52.0); Hemoglobin 12.7 g/dL (14.1-18.0); Lymphocytes # 2.4 K/mm3 (0.7-4.5); Mean Corpuscular HGB Conc 32.7 g/dL (31.8-35.4); Mean Corpuscular Volume 102.2 fl (80-94); Mean Platelet Volume 6.9 fl (7.4-10.4); Monocytes # 0.8 K/mm3 (0.1-1.0); Monocytes % 9.1 % (1.7-9.3); Platelet Count 239 K/mm3 (142-424); Red Cell Distribution Width 14.9 % (11.5-17.5); White Blood Count 9.3 K/mm3 (4.8-10.8)
[2019-03-26 08:09] LABS: Anion Gap 16.2 mEq/L (5-15); Calcium 8.3 mg/dL (8.5-10.1)
--- NOTE | 2019-03-26 08:32 | History & Physical Report ---
*Admission Date: 03/25/19 *Chief complaint: Hemoptysis and weakness *History of present illness: 58-year-old male patient of Dr. Peters with history of hypertension presented to the emergency department with at least a one-week complaint of episodes of hemoptysis with chest tightness. This morning patient denies fevers or chills but admits to night sweats. Work-up in the emergency department revealed a right upper lobe pneumonia. Patient was admitted on Rocephin and azithromycin to cover community-acquired pneumonia although because of a history of alcoholism has been placed on clindamycin as well to cover aspiration. Patient was quite weak in the emergency department and required the assistance of others to get out of the bed and ambulate to a bathroom. Due to his level of weakness and debility in addition to the pneumonia he was admitted Patient reports drinking 1-1-1/2 beers per day. Previously he had more significant alcohol use. His last alcoholic beverage was the day prior to admission. On admission patient was placed on alcohol withdrawal protocol using Serax Patient smokes 2 packs of cigarettes per day and has been smoking since the age of 3 Patient lives by himself most of the time. There is another male who will live with him periodically. Review of systems was most significant for patient's complaints of pain across his chest that is worse with coughing. Patient ruled out for NV overnight. The chest discomfort he has been feeling with cough has decreased. Patient also reports burning within his stomach. [facility] History Medical History: Reports:: Chronic Obstructive Pulmonary Disease (COPD), Hypertension Denies:: Cancer, Diabetes Mellitus Type 1, Diabetes Mellitus Type 2, Internal Pacemaker, MRSA, Seizures *Have you ever received a pneumonia vaccine?: Yes *Have you received a flu vaccine this season?: Yes Other Medical History: Reports: Arthritis, Fibromyalgia. Denies: Blood Transfusion Reaction Laterality Cases: Right: Total Hip Replacement, Bilateral: Arthroscopy Knee, Other Other Surgeries: Yes: Appendectomy, Cholecystectomy, Colonoscopy, Other (phneumonectomy). No: Pacemaker Amputation: No Fractures: No - *Social History Educational Level: Attended High School Smoking Status: Current every day smoker Tobacco Type: cigarettes # Packs/Day (cigarettes): 40 Alcohol Intake: current Alcohol Intake Frequency:: 0-2 drinks per day Substance Use Type: marijuana *Occupational Status:: unemployed, retired Housing: house Household Members: none *Travel in the last 8 weeks: None Family Hx:: Unable to obtain Review of Systems - Constitutional Reports body ache(s), Reports excessive sweating, Reports fatigue, Reports malaise, Reports night sweats, Denies chills, Denies fever(s) - *Cardiovascular Reports chest pain, Reports chest pain at rest - *Respiratory Reports change in phlegm color, Reports coughing up blood - *Gastrointestinal Reports abdominal pain - *Genitourinary Denies difficulty urinating - *Musculoskeletal Denies abnormal walking - *Neurologic Reports weakness Meds Home Medications Medication Instructions Recorded Confirmed Type etodolac 400 mg tablet 400 mg PO Q8H tab 09/05/17 03/26/19 History gabapentin 300 mg capsule 600 mg PO QHS cap 09/05/17 03/26/19 History famotidine 20 mg tablet 20 mg PO BID 10/04/18 03/26/19 History furosemide 40 mg tablet 40 mg PO DAILY 10/04/18 03/26/19 History hydrocortisone 2.5 % topical cream 1 applic [place] QD-BID PRN 10/04/18 03/26/19 History with perineal applicator ondansetron HCl 4 mg tablet 4 mg PO QID PRN 10/04/18 03/26/19 History oxycodone 15 mg tablet 15 mg PO Q4-6H PRN 10/04/18 03/26/19 History spironolactone 50 mg tablet 50 mg PO BID 10/04/18 03/26/19 History Pantoprazole Sodium [Protonix 40mg 40 mg PO BID 03/25/19 03/26/19 History tablet] Potassium Chloride [Klor-con 20 20 meq PO DAILY 03/25/19 03/26/19 History mEq tablet] Tamsulosin HCl 0.4 mg PO DAILY 03/25/19 03/26/19 History cephALEXin [cephALEXin 500mg 500 mg PO BID 03/25/19 03/26/19 History capsule*] Gabapentin [Gabapentin 300mg Cap] 300 mg PO DAILY 03/26/19 03/26/19 History Promethazine HCl [Phenergan 25mg 25 mg PO BIDP PRN 03/26/19 03/26/19 History tab] Allergies Allergy/AdvReac Type Severity Reaction Status Date / Time aspirin [ASPIRIN] Allergy Mild Vomiting Verified 11/15/18 10:53 Exam Vital signs and Labs for Last 24 Hours: Temp Pulse Resp BP Pulse Ox 98.4 F 82 19 96/65 L 86 L 03/26/19 04:00 03/26/19 05:46 03/26/19 04:00 03/26/19 04:00 03/26/19 05:46 Laboratory Results - last 24 hr 03/25/19 11:40: WBC 9.6, RBC 4.02 L, Hgb 13.5 L, Hct 40.8 L, MCV 101.3 H, MCH 33.6 H, MCHC 33.1, RDW 15.0, Plt Count 305, MPV 6.9 L, Neut % (Auto) 73.8, Lymph % (Auto) 18.5, [place] % (Auto) 6.7, Eos % (Auto) 0.5, Baso % (Auto) 0.5, Neut # (Auto) 7.1, Lymph # (Auto) 1.8, [place] # (Auto) 0.6, Eos # (Auto) 0.0, Baso # (Auto) 0.1 03/25/19 11:40: Sodium 126 L, Potassium 3.8, Chloride 90 L, Carbon Dioxide 26, Anion Gap 13.8, BUN 6 L, Creatinine 0.92, Estimated Creat Clear 111, Estimated GFR 84, Est GFR ( Amer) 102, Glucose 136 H, Calcium 9.0, Total Bilirubin 0.7, Direct Bilirubin 0.3 H, Indirect Bilirubin 0.4, AST 24, ALT 13, Alkaline Phosphatase 158 H, Troponin I < 0.02, Total Protein 8.9 H, Albumin 2.4 L, Globulin 6.5 H, Albumin/Globulin Ratio 0.4 L 03/25/19 11:40: PT 11.5, INR 1.11 H 03/25/19 11:40: APTT 29.5 03/25/19 11:40: Phosphorus 3.4, Magnesium 2.0 03/25/19 13:25: Lactate 3.5 H 03/25/19 15:40: Urine Opiates Screen Negative, Urine Methadone Screen Negative, Ur Barbituates Screen Negative, Ur Phencyclidine Scrn Negative, Ur Amphetamines Screen Negative, U Benzodiazepines Scrn Negative, Urine Cocaine Screen Negative, U Marijuana (THC) Screen Negative 03/25/19 18:00: Troponin I < 0.02 03/25/19 18:00: Lactate 3.5 H 03/25/19 20:30: Lactate 2.6 H 03/25/19 21:53: Troponin I < 0.02 03/26/19 06:15: WBC 9.3, RBC 3.80 L, Hgb 12.7 L, Hct 38.8 L, MCV 102.2 H, MCH 33.4 H, MCHC 32.7, RDW 14.9, Plt Count 239, MPV 6.9 L, Neut % (Auto) 64.0, Lymph % (Auto) 26.0, [place] % (Auto) 9.1, Eos % (Auto) 0.5, Baso % (Auto) 0.5, Neut # (Auto) 6.0, Lymph # (Auto) 2.4, [place] # (Auto) 0.8, Eos # (Auto) 0.0, Baso # (Auto) 0.0 I & O for Last 24 hours: Intake & Output 03/23/19 03/24/19 03/25/19 03/26/19 11:59 11:59 11:59 11:59 Intake Total 2096 Balance 2096 Weight 200 lb 178 lb 5 oz Microbiology Reports for the Last 24 Hours: Microbiology 03/25/19 12:20 Sputum - Expectorated Sputum Gram Stain - Final Narrative: Adult male who appears older than his stated age. Oropharynx is moist and without lesions. Neck has no lymphadenopathy. Lungs are have faint expiratory wheezes throughout with faint rale in the right upper lobe. Diminished breath sounds in the right lower lobe. Heart has a regular rate and rhythm. Abdomen is soft and nontender. Patient has active range of motion in all extremities. There is no pedal edema. Neurologically he is noted to have a right hand tremor Assessment and Plan (1) CAP (community acquired pneumonia) Current visit: Yes Status: Acute Qualifiers: Laterality: right Lung location: upper lobe of lung Qualified Code(s): J18.1 - Lobar pneumonia, unspecified organism Category: Medical Code(s): J18.9 - Pneumonia, unspecified organism (2) Alcoholism Current visit: Yes Status: Acute Category: Medical Code(s): F10.20 - Alcohol dependence, uncomplicated (3) Hemoptysis Current visit: Yes Status: Acute Category: Medical Code(s): R04.2 - Hemoptysis - Assessment and plan all Dx Assessment and Plan for all problems:: 1. Continue Rocephin and azithromycin as well as clindamycin at this time. Patient is lucid this morning and currently is consuming very little alcohol chance of aspiration is low. Patient be given a regular diet 2. Continue home medications except for his etodolac due to complaint of "burning stomach" 3. Sputum is being tested for acid-fast bacilli and continue TB precautions
--- NOTE | 2019-03-26 10:13 | Pharmacy Consult Notes ---
[facility] Pharmacy VTE Monitoring - Patient Demographics Admission date: 03/25/19 Report Date: 03/26/19 Time: 10:12 Allergies/Adverse Reactions: Patient Allergies aspirin [ASPIRIN] Allergy (Mild, Verified 11/15/18 10:53) Vomiting Height: 1.78 m Weight: 80.881 kg Patient Problems: Current Active Problems Alcoholism (Acute) CAP (community acquired pneumonia) (Acute) Hemoptysis (Acute) - VTE Risk Labs: VTE Related Lab Results Hgb 12.7 g/dL (14.1-18.0) L 03/26/19 06:15 Hct 38.8 % (42.0-52.0) L 03/26/19 06:15 Plt Count 239 K/mm3 (142-424) 03/26/19 06:15 PT 11.5 seconds (9.4-11.8) 03/25/19 11:40 INR 1.11 (0.9-1.1) H 03/25/19 11:40 APTT 29.5 seconds (23.6-34.0) 03/25/19 11:40 BUN 8 mg/dL (7-18) D 03/26/19 06:15 Creatinine 0.86 mg/dL (0.70-1.30) 03/26/19 06:15 Estimated Creat Clear 106 mL/min (50-200) 03/26/19 06:15 Was VTE Risk Assessment Performed: Yes VTE Score: 5 VTE Risk Level: Low Risk - Prophylaxis VTE Prophylaxis Ordered?: Yes Types of VTE Prophylaxis: TEDS Knee High Location of Applied Device: Bilateral Lower Extremeties
--- NOTE | 2019-03-26 16:53 | Electrocardiograph Report ---
APPROVED REPORT Exam: Resting ECG HR:88 bpm ECG Measurements Heart Rate 88 AXES WI 218 P 54 QRSd 84 QRS -58 QT 364 T51 QTc 440 <Conclusion> Sinus rhythm with 1st degree AV block Left axis deviation,LAHB Abnormal ECG Electronically signed by : Maximino Peters, 03/26/2019 16:53:55
[2019-03-27 06:36] LABS: Basophils % 0.3 % (0.1-2.0); Eosinophils # 0.1 K/mm3 (0.0-0.4); Eosinophils % 0.9 % (0.1-12.0); Hematocrit 35.9 % (42.0-52.0); Lymphocytes # 1.5 K/mm3 (0.7-4.5); Lymphocytes % 17.2 % (10-50); Mean Corpuscular HGB Conc 33.5 g/dL (31.8-35.4); Mean Corpuscular Volume 101.2 fl (80-94); Mean Platelet Volume 6.9 fl (7.4-10.4); Monocytes # 0.9 K/mm3 (0.1-1.0); Monocytes % 9.7 % (1.7-9.3); Neutrophils # 6.3 K/mm3 (1.8-7.8); Neutrophils % 71.8 % (37.0-80.0); Platelet Count 179 K/mm3 (142-424); Red Blood Count 3.55 M/mm3 (4.60-6.20); White Blood Count 8.8 K/mm3 (4.8-10.8)
[2019-03-27 06:46] LABS: Anion Gap 12.9 mEq/L (5-15); Calcium 8.2 mg/dL (8.5-10.1)
--- NOTE | 2019-03-27 10:54 | Progress Note ---
Internal Medicine - PN: Subj *Date: 03/27/19 *Time: 08:20 Interval history: Patient with no significant improvement the past 24 hours. Abdomen continues to be distended. No worsening shortness of breath. Tolerating some p.o. intake. Continues to have hyponatremia. Continuing broad-spectrum antibiotics. Remains afebrile overnight. Denies nausea or vomiting, confusion, headache. Does still have chest pain in the left chest wall. Exam Vital signs and Labs for Last 24 Hours: Temp Pulse Resp BP Pulse Ox 99.5 F 89 18 98/69 L 91 L 03/27/19 07:55 03/27/19 09:09 03/27/19 07:55 03/27/19 07:55 03/27/19 07:55 Laboratory Results - last 24 hr 03/27/19 06:00: WBC 8.8, RBC 3.55 L, Hgb 12.0 L, Hct 35.9 L, MCV 101.2 H, MCH 33.9 H, MCHC 33.5, RDW 15.0, Plt Count 179 D, MPV 6.9 L, Neut % (Auto) 71.8, Lymph % (Auto) 17.2, [place] % (Auto) 9.7 H, Eos % (Auto) 0.9, Baso % (Auto) 0.3, Neut # (Auto) 6.3, Lymph # (Auto) 1.5, [place] # (Auto) 0.9, Eos # (Auto) 0.1, Baso # (Auto) 0.0 03/27/19 06:00: Sodium 125 L, Potassium 3.9, Chloride 93 L, Carbon Dioxide 23, Anion Gap 12.9, BUN 6 L, Creatinine 0.72, Estimated Creat Clear 126, Estimated GFR 112, Est GFR ( Amer) 135 D, Glucose 110 H, Calcium 8.2 L I & O for Last 24 hours: Intake & Output 03/24/19 03/25/19 03/26/19 03/27/19 23:59 23:59 23:59 23:59 Intake Total 900 / 900 1789 / 2189 2388 / 2388 Balance 900 / 900 1789 / 2189 2388 / 2388 Weight 80.059 kg 80.881 kg 80.881 kg Microbiology Reports for the Last 24 Hours: Microbiology 03/25/19 12:20 Sputum - Expectorated Sputum Gram Stain - Final 03/25/19 12:20 Sputum - Expectorated Sputum Sputum Culture - Preliminary Narrative: No acute distress, appears older than stated age Oropharynx is moist and without lesions, no scleral icterus Neck has no lymphadenopathy Lungs with fair air movement, faint expiratory wheezes throughout with crackles and squeak in the right upper lobe. Diminished breath sounds in the right lower lobe Chest wall with spider angiomas Heart has a regular rate and rhythm Abdomen is soft, distended, midline abdominal hernia that is not incarcerated, and nontender Patient has active range of motion in all extremities There is no pedal edema Alert and oriented x2. Assessment and Plan (1) CAP (community acquired pneumonia) Current visit: Yes Status: Acute Qualifiers: Laterality: right Lung location: upper lobe of lung Qualified Code(s): J18.1 - Lobar pneumonia, unspecified organism Category: Medical Code(s): J18.9 - Pneumonia, unspecified organism (2) Alcoholism Current visit: Yes Status: Acute Category: Medical Code(s): F10.20 - Alcohol dependence, uncomplicated (3) Hemoptysis Current visit: Yes Status: Acute Category: Medical Code(s): R04.2 - Hemoptysis - Assessment and plan all Dx Assessment and Plan for all problems:: Continuing to rule out tuberculosis at this time reordered sputum culture for this morning with repeat for tomorrow morning. Acid-fast from 2 days ago still remains negative. Continue respiratory precautions. At this time as well I am unsure about patient's cirrhosis history. Concern for cirrhosis as underlying etiology of patient's problems. Does have stigmata on chest with spider angiomas and distended abdomen. Further history elicits the patient has had ascites drained more than once in the past month. Cirrhosis would explain patient's low blood pressures and hyponatremia along with hemoptysis which may be more than just hemoptysis. No further bleeding. BUN within normal range, low suspicion for GI bleed or variceal bleed. Ammonia level pending. May benefit from endoscopy to assess for variceal presence. Continue to require inpatient management
[2019-03-27 12:54] LABS: Albumin/Globulin Ratio 0.3 (1.1-1.8); Anion Gap 18.9 mEq/L (5-15); Bilirubin,Total 0.8 mg/dL (0.2-1.0); Calcium 8.4 mg/dL (8.5-10.1); Globulin 5.8 gm/dl (1.3-3.2); Total Protein,Serum 7.8 gm/dL (6.4-8.2)
[2019-03-28 07:08] LABS: Basophils % 0.4 % (0.1-2.0); Eosinophils # 0.1 K/mm3 (0.0-0.4); Eosinophils % 1.2 % (0.1-12.0); Hematocrit 34.4 % (42.0-52.0); Hemoglobin 11.3 g/dL (14.1-18.0); Lymphocytes # 1.2 K/mm3 (0.7-4.5); Lymphocytes % 13.3 % (10-50); Mean Corpuscular HGB Conc 32.9 g/dL (31.8-35.4); Mean Corpuscular Volume 101.9 fl (80-94); Mean Platelet Volume 7.6 fl (7.4-10.4); Monocytes # 0.9 K/mm3 (0.1-1.0); Monocytes % 9.8 % (1.7-9.3); Neutrophils # 6.9 K/mm3 (1.8-7.8); Neutrophils % 75.4 % (37.0-80.0); Platelet Count 164 K/mm3 (142-424); Red Blood Count 3.38 M/mm3 (4.60-6.20); Red Cell Distribution Width 14.8 % (11.5-17.5); White Blood Count 9.1 K/mm3 (4.8-10.8)
[2019-03-28 07:34] LABS: Albumin Level 1.8 gm/dL (3.4-5.0); Albumin/Globulin Ratio 0.4 (1.1-1.8); Bilirubin,Total 0.8 mg/dL (0.2-1.0); Calcium 8.2 mg/dL (8.5-10.1); Phosphorous 3.9 mg/dL (2.4-4.9); Total Protein,Serum 6.8 gm/dL (6.4-8.2)
--- NOTE | 2019-03-28 08:14 | Progress Note ---
Internal Medicine - PN: Subj *Date: 03/28/19 *Time: 08:11 Interval history: Patient did fairly well overnight and has been eating well. Does not wish to wear his oxygen and oxygen saturations are routinely in the upper 70% range. Nurses apply his oxygen but then he removes it to move about the room and declines to replace the oxygen. Patient is very interested in being discharged home because "I do not want to live out my days in the hospital." He also complains today of scant hemoptysis that is mixed in with mucus that he is coughing up. He denies hemoptysis or dark stools. Reports that he continues to have pain with inspiration across his chest. Denies diaphoresis or anginal type pain. Denies abdominal pain. Exam Vital signs and Labs for Last 24 Hours: Temp Pulse Resp BP Pulse Ox 99.5 F 92 H 19 110/67 89 L 03/28/19 04:00 03/28/19 05:48 03/28/19 04:00 03/28/19 04:00 03/28/19 04:00 Laboratory Results - last 24 hr 03/27/19 11:10: Sodium 127 L, Potassium 3.9, Chloride 94 L, Carbon Dioxide 18 L D, Anion Gap 18.9 H, BUN 6 L, Creatinine 0.72, Estimated Creat Clear 126, Estimated GFR 112, Est GFR ( Amer) 135, Glucose 113 H, Calcium 8.4 L, Total Bilirubin 0.8, AST 32 D, ALT 14, Alkaline Phosphatase 141 H, Total Protein 7.8, Albumin 2.0 L, Globulin 5.8 H, Albumin/Globulin Ratio 0.3 L 03/27/19 11:10: Ammonia 33 03/28/19 06:45: WBC 9.1, RBC 3.38 L, Hgb 11.3 L, Hct 34.4 L, MCV 101.9 H, MCH 33.5 H, MCHC 32.9, RDW 14.8, Plt Count 164, MPV 7.6, Neut % (Auto) 75.4, Lymph % (Auto) 13.3, [place] % (Auto) 9.8 H, Eos % (Auto) 1.2, Baso % (Auto) 0.4, Neut # (Auto) 6.9, Lymph # (Auto) 1.2, [place] # (Auto) 0.9, Eos # (Auto) 0.1, Baso # (Auto) 0.0 03/28/19 06:45: Sodium 127 L, Potassium 5.0 D, Chloride 96 L, Carbon Dioxide 21, Anion Gap 15.0, BUN 5 L, Creatinine 0.63 L, Estimated Creat Clear 153, Estimated GFR 130, Est GFR ( Amer) 158, Glucose 122 H, Calcium 8.2 L, Phosphorus 3.9, Magnesium 1.7 D, Total Bilirubin 0.8, AST 51 H D, ALT 13, Alkaline Phosphatase 138 H, Total Protein 6.8, Albumin 1.8 L, Globulin 5.0 H, Albumin/Globulin Ratio 0.4 L I & O for Last 24 hours: Intake & Output 03/25/19 03/26/19 03/27/19 03/28/19 11:59 11:59 11:59 11:59 Intake Total 2096 / 2096 2980 / 2980 600 / 600 Balance 2096 2980 / 2980 600 / 600 Weight 200 lb 178 lb 5 oz 178 lb 4.993 oz 189 lb 7 oz Microbiology Reports for the Last 24 Hours: Microbiology 03/25/19 12:20 Sputum - Expectorated Sputum Gram Stain - Final 03/25/19 12:20 Sputum - Expectorated Sputum Sputum Culture - Preliminary Pseudomonas aeruginosa Klebsiella pneumoniae 03/25/19 13:30 Blood Blood Culture - Preliminary NO GROWTH AFTER 48 HOURS 03/25/19 13:30 Blood Blood Culture - Preliminary NO GROWTH AFTER 48 HOURS Narrative: Patient is awake, oriented. 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 Patient appears much older than his stated age. Has significant evidence of osteoarthritis of knees, feet and hands. Anterior lung hsieh have rhonchi and crackles in the right middle field. Heart rate regular. Abdomen is soft, no palpable ascites, no stigmata of caput medusa. Trace ankle edema bilaterally but no pitting. Able to move arms and legs well. Cranial nerves intact. Assessment and Plan (1) CAP (community acquired pneumonia) Current visit: Yes Status: Acute Qualifiers: Laterality: right Lung location: upper lobe of lung Qualified Code(s): J18.1 - Lobar pneumonia, unspecified organism Category: Medical Code(s): J18.9 - Pneumonia, unspecified organism (2) Alcoholism Current visit: Yes Status: Acute Category: Medical Code(s): F10.20 - Alcohol dependence, uncomplicated (3) Hemoptysis Current visit: Yes Status: Acute Category: Medical Code(s): R04.2 - Hemoptysis - Assessment and plan all Dx Assessment and Plan for all problems:: Sputum cultures growing Pseudomonas and Klebsiella. Change antibiotic therapy to ceftriaxone and tobramycin to cover these pathogens-formal sensitivities pending. Patient's hemoptysis seems to be from his significant pneumonia burden, we are awaiting his third AFB sample to be able to remove him from isolation. Check chest x-ray today because of his continuing chest pain and hemoptysis. Check labs tomorrow. Patient will need work-up for probable liver cirrhosis as an outpatient. He will need EGD and ultrasound. Hold on EGD at this point given his significant pneumonia issues.
--- NOTE | 2019-03-28 08:26 | Pharmacy Consult Notes ---
- Pharmacy Consult Date: 03/28/19 Time: 08:24 Referring provider: DR. CORDOVA Reason for Consult:: TOBRAMYCIN DOSING Allergies and ADEs:: Allergies Allergy/AdvReac Type Severity Reaction Status Date / Time aspirin [ASPIRIN] Allergy Mild Vomiting Verified 11/15/18 10:53 Home Medications:: Home Medications Medication Instructions Recorded Confirmed Type etodolac 400 mg tablet 400 mg PO Q8H tab 09/05/17 03/26/19 History gabapentin 300 mg capsule 600 mg PO HS cap 09/05/17 03/26/19 History famotidine 20 mg tablet 20 mg PO BID 10/04/18 03/26/19 History furosemide 40 mg tablet 40 mg PO DAILY 10/04/18 03/26/19 History hydrocortisone 2.5 % topical cream 1 applic MA QD-BID PRN 10/04/18 03/26/19 History with perineal applicator ondansetron HCl 4 mg tablet 4 mg PO QID PRN 10/04/18 03/26/19 History oxycodone 15 mg tablet 15 mg PO Q4-6H PRN 10/04/18 03/26/19 History spironolactone 50 mg tablet 50 mg PO BID 10/04/18 03/26/19 History Pantoprazole Sodium [Protonix 40mg 40 mg PO BID 03/25/19 03/26/19 History tablet] Potassium Chloride [Klor-con 20 20 meq PO DAILY 03/25/19 03/26/19 History mEq tablet] Tamsulosin HCl 0.4 mg PO DAILY 03/25/19 03/26/19 History cephALEXin [cephALEXin 500mg 1,000 mg PO BID 03/25/19 03/26/19 History capsule*] Gabapentin [Gabapentin 300mg Cap] 300 mg PO DAILY 03/26/19 03/26/19 History Promethazine HCl [Phenergan 25mg 25 mg PO BIDP PRN 03/26/19 03/26/19 History tab] Height: 1.78 m Weight: 85.927 kg Laboratory Results:: Laboratory Results - last 24 hr 03/27/19 11:10: Sodium 127 L, Potassium 3.9, Chloride 94 L, Carbon Dioxide 18 L D, Anion Gap 18.9 H, BUN 6 L, Creatinine 0.72, Estimated Creat Clear 126, Estimated GFR 112, Est GFR ( Amer) 135, Glucose 113 H, Calcium 8.4 L, Total Bilirubin 0.8, AST 32 D, ALT 14, Alkaline Phosphatase 141 H, Total Protein 7.8, Albumin 2.0 L, Globulin 5.8 H, Albumin/Globulin Ratio 0.3 L 03/27/19 11:10: Ammonia 33 03/28/19 06:45: WBC 9.1, RBC 3.38 L, Hgb 11.3 L, Hct 34.4 L, MCV 101.9 H, MCH 33.5 H, MCHC 32.9, RDW 14.8, Plt Count 164, MPV 7.6, Neut % (Auto) 75.4, Lymph % (Auto) 13.3, [place] % (Auto) 9.8 H, Eos % (Auto) 1.2, Baso % (Auto) 0.4, Neut # (Auto) 6.9, Lymph # (Auto) 1.2, [place] # (Auto) 0.9, Eos # (Auto) 0.1, Baso # (A uto) 0.0 03/28/19 06:45: Sodium 127 L, Potassium 5.0 D, Chloride 96 L, Carbon Dioxide 21, Anion Gap 15.0, BUN 5 L, Creatinine 0.63 L, Estimated Creat Clear 153, Estimated GFR 130, Est GFR ( Amer) 158, Glucose 122 H, Calcium 8.2 L, Phosphorus 3.9, Magnesium 1.7 D, Total Bilirubin 0.8, AST 51 H D, ALT 13, Alkaline Phosphatase 138 H, Total Protein 6.8, Albumin 1.8 L, Globulin 5.0 H, Albumin/Globulin Ratio 0.4 L Medical History: Reports:: Chronic Obstructive Pulmonary Disease (COPD), Hypertension Denies:: Cancer, Diabetes Mellitus Type 1, Diabetes Mellitus Type 2, Internal Pacemaker, MRSA, Seizures Assessment and Plan (1) CAP (community acquired pneumonia) Current visit: Yes Status: Acute Qualifiers: Laterality: right Lung location: upper lobe of lung Qualified Code(s): J18.1 - Lobar pneumonia, unspecified organism Category: Medical Code(s): J18.9 - Pneumonia, unspecified organism (2) Alcoholism Current visit: Yes Status: Acute Category: Medical Code(s): F10.20 - Alcohol dependence, uncomplicated (3) Hemoptysis Current visit: Yes Status: Acute Category: Medical Code(s): R04.2 - Hemoptysis - Assessment and plan all Dx Assessment and Plan for all problems:: BASED ON PATIENT'S FACTORS, RECOMMEND STARTING TOBRAMYCIN 400 MG Q24H AT THIS TIME. THIS IS ~5 MG/KG DBW OF 73 KG. PHARMACY WILL FOLLOW DAILY AND ADJUST APPROPRIATE. CARSON TEIXEIRA, PHARMD
[2019-03-28 13:11] LABS: Hepatitis B Surface Antigen Negative (Negative)
[2019-03-28 14:30] LABS: Hepatitis C Antibody 0.2 s/co ratio (0.0-0.9)
--- NOTE | 2019-03-28 18:02 | Death Note ---
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 Over the first day of his hospital course it was apparent that this patient had significant history of liver disease that was not revealed by the patient in the emergency department. He reported that he had ascitic fluid tapped at an outside facility less than 3 or 4 weeks ago and that he was told that he had liver cirrhosis. He continued to have problems with hypoxia without oxygen but continually refused to wear his oxygen via nasal cannula in spite of O2 saturations going into the 70s without oxygen and continued reminders by the nursing staff to put his oxygen back on. During 1 of these episodes he became extremely hypoxic and developed significant bradycardia transition into asystole and full cardiac arrest. In spite of aggressive resuscitative measures including CPR, bag ventilation and 3 rounds of epinephrine, patient did not regain viable heart rhythm and remained asystolic. Patient was pronounced at 5:50 PM by me. - Additional Data Confirmation of as documented by pronouncing clinician: no pulse, no respirations, pupils fixed and dilated Family: attempt made, not available Attending/PCP notified?: Yes Attending physician: Otilio Quintana MD Was code activated?: Yes Autopsy requested?: No line up examiner notified?: No Organ bank notified?: Yes Advance directives: No Hospice patient?: No
== END 2019-03-28 20:25 | disposition expired | DRG 178 ==
LOC: 2ND 11:34 → ER 11:34 → 2ND 15:36 → OBSVTOIN 16:00 → 2ND 16:01
PROVIDERS: ADMIT Family Medicine; ATTEND Internal Medicine Adolescent Medicine
CPT/HCPCS: 36415; 71010; 71020; 71045; 71046; 71275; 80048; 80053; 80074; 80076; 80200; 80305; 82140; 82607; 83605; 83735; 84100; 84443; 84484; 85025; 85610; 85730; 87040; 87070; 87077; 87116; 87186; 87205; 87206; 93005; 94640; 94761; 96374; 99285; J0456; Q9967; S0077